=== PATIENT | female | born 1970 | race Caucasian/White ===

== ENCOUNTER → 2018-02-28 07:46 | Outpatient (CLI) | payer SELFPAY ==
--- NOTE | 2018-02-28 07:51 | US_ITS ---
STUDY: ULTRASOUND OF THE FEMALE PELVIS - COMPLETE REASON FOR EXAM: Female, 47 years old. Pelvic pain. History of fibroids. LMP: 02/14/2018. TECHNIQUE: Transabdominal TECHNICAL QUALITY: The examination is somewhat limited without endovaginal study. COMPARISON: None. FINDINGS: The uterus is anteverted and is in a midline position. The uterus measures 22.1 x 14.8 x 6.3 cm. Normal uterine cervix. The endometrium measures 3 mm in thickness, and is heterogeneous (striated). There is no demonstrated endometrial mass. There is a large mass in the fundus of the uterus measuring about 9 x 8 x 7.8 cm consistent with uterine fibroid. There is another smaller mass on the right side of the uterus near the fundus measuring about 7.8 x 5.2 x 5.2 cm. I.U.D. - The patient does have an I.U.D. The right ovary is visualized. The right ovary measures 5.6 x 3.9 x 3.3 cm. There is a cyst in the right ovary measuring by 2.3 x 2.7 x 2.3 cm. There is no visualized right adnexal mass or complex lesion. There is normal arterial and normal venous vascularity. The left ovary is visualized. The left ovary measures 3.1 x 2.7 x 2.5 cm. There is no left ovarian cyst or ovarian mass. There is no visualized left adnexal mass or complex lesion. There is normal arterial and normal venous vascularity. There is no fluid in the cul-de-sac. The pre void volume of the bladder was 385 ml. US/Pelvic (Non ) IMPRESSION: 1. Markedly enlarged uterus extending to the umbilical region with 2 large fibroids as described above. 2. Right ovarian cyst. 3. IUD in place. Electronically Signed: Eric Us MD at 8:12 EST Tel , Service support ,
== END ==
PROVIDERS: Family Provider Internal Medicine; PCP Internal Medicine; Referring Provider Nurse Practitioner Women's Health; Visit Provider Nurse Practitioner Women's Health
DX: D25.9 Leiomyoma of uterus, unspecified (principal); R10.2 Pelvic and perineal pain
CPT/HCPCS: 76856